=== PATIENT | male | born 1945 | race Caucasian/White ===

== ENCOUNTER 2018-02-10 12:06 | Inpatient (IN) | payer MEDICARE, OTHER ==
[~2018-02-10] VITALS: Ht 180.3 cm; Wt 115.8 kg
[2018-02-10 12:42] LABS: BASOPHILS % (AUTO) 0.1 % (0-1); EOSINOPHILS # (AUTO) 0.3 X10'3 (0-0.9); EOSINOPHILS % (AUTO) 2.7 % (0-6); HEMATOCRIT 43.6 % (42.0-52.0); HEMOGLOBIN 14.7 g/dl (14.0-17.9); LYMPHOCYTES # (AUTO) 1.8 X10'3 (1.1-4.8); MEAN CORPUSCULAR HGB CONC 33.7 % (33.0-36.5); MEAN CORPUSCULAR VOLUME 80.2 FL (78-98); MEAN PLATELET VOLUME 8.7 FL (7.4-10.4); MONOCYTES # (AUTO) 0.9 X10'3 (0-0.9); NEUTROPHILS # (AUTO) 6.6 X10'3 (1.8-7.7); NEUTROPHILS % (AUTO) 69.2 % (42-75); PLATELET COUNT 262 X10'3 (140-440); RED BLOOD COUNT 5.43 X10'6 (4.70-6.10); RED CELL DISTRIBUTION WIDTH 15.7 % (11.5-14.5); WHITE BLOOD COUNT 9.6 X10'3 (4.5-11.0)
[2018-02-10 12:56] LABS: PARTIAL THROMBOPLASTIN TIME 28 SECONDS (22-32); PROTHROMBIN TIME 10.4 SECONDS (9.0-12.0)
[2018-02-10 12:58] LABS: ALANINE AMINOTRANSFERASE 37 U/L (12-78); ALBUMIN 3.6 G/DL (3.4-5.0); ALBUMIN/GLOBULIN RATIO 0.8 (1.1-1.5); ALKALINE PHOSPHATASE 104 IU/L (46-116); ANION GAP 14 (8-16); ASPARTATE AMINO TRANSFERASE 25 U/L (10-37); BILIRUBIN,TOTAL 0.3 MG/DL (0.1-1.0); BLOOD UREA NITROGEN 19 MG/DL (7-18); BUN/CREATININE RATIO 16.8 (5.4-32.0); CALCIUM 8.7 MG/DL (8.5-10.1); CHLORIDE 99 MMOL/L (99-107); CREATININE 1.13 MG/DL (0.60-1.10); GLUCOSE 254 MG/DL (70-104); POTASSIUM 4.1 MMOL/L (3.5-5.1); SODIUM 136 MMOL/L (135-145); TOTAL CARBON DIOXIDE 23.5 MMOL/L (24-32); TOTAL PROTEIN 8.1 G/DL (6.4-8.2); eGFR 64 ML/MIN
[2018-02-10] MEDS ORDERED: aspirin 81mg tab.chew PO ONE (13:35)
[2018-02-10] MEDS ORDERED: nitroGLYCERIN 0.4mg SUBLingual tab SL PRN ×2 (13:35→15:00)
[2018-02-10] MEDS ORDERED: heparin 10,000 units/1 ML INJ IV ONE ×2 (13:35→13:55)
[2018-02-10] MEDS ORDERED: VALS40TA2 PO (14:08)
[2018-02-10] MEDS ORDERED: QUET25TA PO (14:08)
[2018-02-10] MEDS ORDERED: VENL75CA55 PO (14:08)
[2018-02-10] MEDS: heparin 25,000 UNIT/250ml bag 250 ML IV SCH ×2 (14:22→23:50)
[2018-02-10] MEDS ORDERED: HYDROcodone/acetaminophen 5mg/325mg tablet PO PRN (14:35)
[2018-02-10] MEDS ORDERED: magnesium Cl slow-release 64mg tablet PO PRN (14:35)
[2018-02-10] MEDS ORDERED: acetaminophen 325mg tablet PO PRN (14:35)
[2018-02-10] MEDS ORDERED: potassium Cl 20 mEq SR tablet PO PRN ×2 (14:35)
[2018-02-10] MEDS ORDERED: morphine 2 MG/ML inj. syringe IV PRN ×2 (14:35)
[2018-02-10] MEDS ORDERED: ondansetron/PF 4mg/2ml inj IV PRN (14:35)
[2018-02-10] MEDS ORDERED: MESSAGE TO PHARMACY PO ONE ×2 (14:35→21:50)
[2018-02-10] MEDS ORDERED: potassium Cl 40MEQ/NS 500ml 500 ML IV PRN ×2 (14:35)
[2018-02-10] MEDS ORDERED: HYDROcodone/acetaminophen 10/325mg tab PO PRN (14:35)
[2018-02-10] MEDS ORDERED: mag hydrox/Alum hydrox/simeth 30ml oral suspension PO PRN (14:35)
[2018-02-10] MEDS ORDERED: magnesium hydroxide 30ml (MOM) UD suspension PO PRN (14:35)
[2018-02-10] MEDS ORDERED: metoprolol tartrate 1mg/ml inj IV STA (14:35)
[2018-02-10] MEDS ORDERED: magnesium 4gm in 100ml NS 100 ML IV PRN (14:35)
[2018-02-10] MEDS ORDERED: magnesium 1gm/100ml D5W IVPB 100 ML IV PRN (14:35)
[2018-02-10] MEDS ORDERED: atorvastatin 20mg tablet PO SCH (15:00)
[2018-02-10 15:30] LABS: HEMOGLOBIN A1C 7.8 % (4.5-6.2)
[2018-02-10 18:02] VITALS: BP 128/63
[2018-02-10 19:00] VITALS: BP 148/83
[2018-02-10] MEDS ORDERED: metoprolol tartrate 50mg tablet PO SCH (20:00)
[2018-02-10] MEDS: QUEtiapine 25mg tablet PO SCH (21:14)
[2018-02-10] MEDS ORDERED: dextrose ORAL solution 15 GM/59 ML bottle PO PRN ×2 (21:50)
[2018-02-10] MEDS ORDERED: dextrose 50%-water 50ml dispensing syringe IV PRN ×2 (21:50)
[2018-02-10] MEDS ORDERED: glucagon, human recombinant 1mg kit SUBCUT PRN (21:50)
[2018-02-10 22:00] VITALS: BP 118/70
[2018-02-10] MEDS: heparin 10,000 units/1 ML INJ IV PRN (23:44)
[2018-02-11] VITALS (13 sets, daily range): BP systolic 97–152; BP diastolic 52–82
[2018-02-11] MEDS: acetaminophen 325mg tablet PO PRN ×2 (03:11→11:36)
[2018-02-11 07:35] LABS: BASOPHILS % (AUTO) 0.3 % (0-1); EOSINOPHILS # (AUTO) 0.2 X10'3 (0-0.9); EOSINOPHILS % (AUTO) 2.4 % (0-6); HEMOGLOBIN 12.7 g/dl (14.0-17.9); LYMPHOCYTES # (AUTO) 2.1 X10'3 (1.1-4.8); LYMPHOCYTES % (AUTO) 25.6 % (21-51); MEAN CORPUSCULAR HEMOGLOBIN 26.4 PG (27.0-31.0); MEAN CORPUSCULAR HGB CONC 32.7 % (33.0-36.5); MEAN CORPUSCULAR VOLUME 80.7 FL (78-98); MEAN PLATELET VOLUME 8.6 FL (7.4-10.4); MONOCYTES % (AUTO) 12.2 % (2-12); NEUTROPHILS # (AUTO) 4.8 X10'3 (1.8-7.7); NEUTROPHILS % (AUTO) 59.5 % (42-75); PLATELET COUNT 232 X10'3 (140-440); RED BLOOD COUNT 4.83 X10'6 (4.70-6.10); RED CELL DISTRIBUTION WIDTH 15.2 % (11.5-14.5); WHITE BLOOD COUNT 8.1 X10'3 (4.5-11.0)
[2018-02-11 07:53] LABS: ALBUMIN 3.2 G/DL (3.4-5.0); ANION GAP 10 (8-16); BLOOD UREA NITROGEN 15 MG/DL (7-18); BUN/CREATININE RATIO 13.8 (5.4-32.0); CALCIUM 8.7 MG/DL (8.5-10.1); CHLORIDE 102 MMOL/L (99-107); CHOL/HDL RATIO 6.7 (0.00-4.99); CHOLESTEROL 188 MG/DL (0-200); CREATININE 1.09 MG/DL (0.60-1.10); GLUCOSE 198 MG/DL (70-104); HDL CHOLESTEROL 28 MG/DL (35-60); LDL CHOLESTEROL 116 MG/DL (50-100); MAGNESIUM 1.9 MG/DL (1.5-2.4); SODIUM 138 MMOL/L (135-145); TOTAL CARBON DIOXIDE 25.9 MMOL/L (24-32); TRIGLYCERIDES 393 MG/DL (20-135); eGFR 66 ML/MIN
[2018-02-11] MEDS ORDERED: nitroGLYCERIN 0.2mg/hour patch TD SCH (08:00)
[2018-02-11] MEDS: K and/or MAG REPLACEMENT MC SCH (08:00)
[2018-02-11] MEDS ORDERED: metoprolol tartrate 12.5mg (1/2 tablet) PO SCH (08:19)
[2018-02-11] MEDS: metoprolol tartrate 12.5mg (1/2 tablet) PO SCH ×2 (08:30→19:30)
[2018-02-11] MEDS: venlafaxine XR 75mg capsule (Q24H) PO SCH (08:30)
[2018-02-11] MEDS: losartan 25mg tablet PO SCH (08:30)
[2018-02-11] MEDS: heparin 10,000 units/1 ML INJ IV PRN ×2 (08:35→23:21)
[2018-02-11] MEDS: heparin 25,000 UNIT/250ml bag 250 ML IV SCH ×4 (08:36→23:25)
[2018-02-11] MEDS: insulin Lispro (HumaLOG) vial - multi-dose SQ SCH ×3 (08:39→19:29)
[2018-02-11] MEDS ORDERED: aminophylline 250mg/10ml inj. IV PRN (11:55)
[2018-02-11] MEDS ORDERED: nitroGLYCERIN 0.4mg SUBLingual tab SL PRN (11:55)
[2018-02-11] MEDS ORDERED: metoprolol tartrate 1mg/ml inj IV PRN (11:55)
[2018-02-11] MEDS ORDERED: regadenoson 0.4mg/5ml syringe IV ONE ×2 (11:55→15:07)
[2018-02-11] MEDS ORDERED: aminophylline inj. 0 ML IV ONE (15:07)
[2018-02-11] MEDS: QUEtiapine 25mg tablet PO SCH (21:31)
[2018-02-11] MEDS: insulin glargine (Lantus) pen - multi-dose SQ SCH (21:39)
[2018-02-12] VITALS (12 sets, daily range): BP systolic 69–159; BP diastolic 55–79
[2018-02-12] MEDS: heparin 25,000 UNIT/250ml bag 250 ML IV SCH (03:01)
[2018-02-12 06:36] LABS: BASOPHILS % (AUTO) 0.2 % (0-1); EOSINOPHILS # (AUTO) 0.2 X10'3 (0-0.9); EOSINOPHILS % (AUTO) 2.6 % (0-6); HEMATOCRIT 40.4 % (42.0-52.0); HEMOGLOBIN 13.4 g/dl (14.0-17.9); LYMPHOCYTES # (AUTO) 1.5 X10'3 (1.1-4.8); LYMPHOCYTES % (AUTO) 19.3 % (21-51); MEAN CORPUSCULAR HEMOGLOBIN 26.9 PG (27.0-31.0); MEAN CORPUSCULAR HGB CONC 33.2 % (33.0-36.5); MEAN PLATELET VOLUME 8.6 FL (7.4-10.4); MONOCYTES # (AUTO) 1.1 X10'3 (0-0.9); MONOCYTES % (AUTO) 13.5 % (2-12); NEUTROPHILS # (AUTO) 5.1 X10'3 (1.8-7.7); NEUTROPHILS % (AUTO) 64.4 % (42-75); PLATELET COUNT 209 X10'3 (140-440); RED BLOOD COUNT 4.98 X10'6 (4.70-6.10); RED CELL DISTRIBUTION WIDTH 15.1 % (11.5-14.5); WHITE BLOOD COUNT 7.9 X10'3 (4.5-11.0)
[2018-02-12 06:55] LABS: ALBUMIN 3.3 G/DL (3.4-5.0); ANION GAP 11 (8-16); BLOOD UREA NITROGEN 17 MG/DL (7-18); CALCIUM 8.8 MG/DL (8.5-10.1); CHLORIDE 102 MMOL/L (99-107); GLUCOSE 194 MG/DL (70-104); SODIUM 139 MMOL/L (135-145); TOTAL CARBON DIOXIDE 25.6 MMOL/L (24-32); eGFR 73 ML/MIN
[2018-02-12] MEDS: losartan 25mg tablet PO SCH (07:31)
[2018-02-12] MEDS: venlafaxine XR 75mg capsule (Q24H) PO SCH (07:31)
[2018-02-12] MEDS: metoprolol tartrate 12.5mg (1/2 tablet) PO SCH ×2 (07:32→20:10)
[2018-02-12] MEDS: acetaminophen 325mg tablet PO PRN (07:32)
[2018-02-12] MEDS: K and/or MAG REPLACEMENT MC SCH (08:00)
[2018-02-12] MEDS ORDERED: aspirin 325mg tablet PO SCH (08:30)
[2018-02-12] MEDS: normal saline 1000ml 1,000 ML IV SCH ×3 (10:00→20:09)
[2018-02-12] MEDS ORDERED: fentaNYL/PF 50MCG/1 ML 2ML syringe ONE (12:40)
[2018-02-12] MEDS ORDERED: LIDOcaine 1% (10mg/ml)w/preservative injection 20ml MDV ONE (12:40)
[2018-02-12] MEDS ORDERED: midazolam 2 mg/2 ml injection ONE (12:40)
[2018-02-12] MEDS ORDERED: iohexol 350MG/ML 100ml bottle IV ONE ×2 (12:41→14:24)
[2018-02-12] MEDS ORDERED: nitroGLYCERIN-Tridil 50MG/D5W 250 ML IV ONE (12:41)
[2018-02-12] MEDS ORDERED: heparin 1,000unit/ml 10ml vial 10 ML ONE ×2 (12:41→15:06)
[2018-02-12] MEDS ORDERED: iohexol 350 MG/ML 50ML vial IV ONE ×2 (12:41→14:00)
[2018-02-12] MEDS ORDERED: clopidogrel 300mg tablet ONE (15:00)
[2018-02-12] MEDS ORDERED: OXAZEpam 15mg capsule PO PRN (16:00)
[2018-02-12] MEDS ORDERED: HYDROcodone/acetaminophen 10/325mg tab PO PRN ×3 (16:00→16:04)
[2018-02-12] MEDS ORDERED: acetaminophen 325mg tablet PO PRN (16:00)
[2018-02-12] MEDS ORDERED: aspirin 81mg tab.chew PO ONE (16:00)
[2018-02-12] MEDS ORDERED: magnesium hydroxide 30ml (MOM) UD suspension PO PRN (16:00)
[2018-02-12] MEDS ORDERED: cyclobenzaprine 10mg tablet PO PRN (16:00)
[2018-02-12] MEDS: docusate sod 100mg capsule PO SCH (20:10)
[2018-02-12] MEDS: QUEtiapine 25mg tablet PO SCH (20:10)
[2018-02-12] MEDS: insulin Lispro (HumaLOG) vial - multi-dose SQ SCH (20:58)
[2018-02-12] MEDS: insulin glargine (Lantus) pen - multi-dose SQ SCH (20:59)
[2018-02-13] VITALS (14 sets, daily range): BP systolic 112–153; BP diastolic 58–77
[2018-02-13 05:13] LABS: BASOPHILS % (AUTO) 0.1 % (0-1); EOSINOPHILS # (AUTO) 0.3 X10'3 (0-0.9); EOSINOPHILS % (AUTO) 3.4 % (0-6); HEMATOCRIT 37.4 % (42.0-52.0); HEMOGLOBIN 12.4 g/dl (14.0-17.9); LYMPHOCYTES # (AUTO) 1.4 X10'3 (1.1-4.8); LYMPHOCYTES % (AUTO) 19.4 % (21-51); MEAN CORPUSCULAR HEMOGLOBIN 26.9 PG (27.0-31.0); MEAN CORPUSCULAR HGB CONC 33.2 % (33.0-36.5); MONOCYTES % (AUTO) 13.6 % (2-12); NEUTROPHILS # (AUTO) 4.7 X10'3 (1.8-7.7); NEUTROPHILS % (AUTO) 63.5 % (42-75); PLATELET COUNT 231 X10'3 (140-440); RED BLOOD COUNT 4.62 X10'6 (4.70-6.10); RED CELL DISTRIBUTION WIDTH 15.3 % (11.5-14.5); WHITE BLOOD COUNT 7.5 X10'3 (4.5-11.0)
[2018-02-13 05:37] LABS: ALBUMIN 3.1 G/DL (3.4-5.0); ANION GAP 10 (8-16); BLOOD UREA NITROGEN 14 MG/DL (7-18); BUN/CREATININE RATIO 14.6 (5.4-32.0); CALCIUM 8.6 MG/DL (8.5-10.1); CHLORIDE 103 MMOL/L (99-107); CHOL/HDL RATIO 6.4 (0.00-4.99); CHOLESTEROL 172 MG/DL (0-200); CREATININE 0.96 MG/DL (0.60-1.10); GLUCOSE 172 MG/DL (70-104); HDL CHOLESTEROL 27 MG/DL (35-60); LDL CHOLESTEROL 106 MG/DL (50-100); MAGNESIUM 1.9 MG/DL (1.5-2.4); SODIUM 140 MMOL/L (135-145); TOTAL CARBON DIOXIDE 26.8 MMOL/L (24-32); TRIGLYCERIDES 299 MG/DL (20-135); eGFR 77 ML/MIN
[2018-02-13] MEDS: normal saline 1000ml 1,000 ML IV SCH (06:07)
[2018-02-13] MEDS: losartan 25mg tablet PO SCH (07:41)
[2018-02-13] MEDS: venlafaxine XR 75mg capsule (Q24H) PO SCH (07:41)
[2018-02-13] MEDS: docusate sod 100mg capsule PO SCH (07:41)
[2018-02-13] MEDS: metoprolol tartrate 12.5mg (1/2 tablet) PO SCH (07:41)
[2018-02-13] MEDS: K and/or MAG REPLACEMENT MC SCH (07:43)
[2018-02-13] MEDS ORDERED: clopidogrel 75mg tablet PO SCH (08:00)
[2018-02-13] MEDS: insulin Lispro (HumaLOG) vial - multi-dose SQ SCH ×2 (08:10→13:19)
[2018-02-13] MEDS ORDERED: aspirin 325mg tablet PO SCH (08:30)
[2018-02-13] MEDS ORDERED: CLOP75TA35 PO (12:29)
[2018-02-13] MEDS ORDERED: NITR0.4T51 SL (12:29)
[2018-02-13] MEDS ORDERED: ASPI81TA30 PO (12:29)
[2018-02-13] MEDS ORDERED: METO25TA6 PO (12:29)
[2018-02-13] MEDS ORDERED: METF500T PO (12:31)
== END 2018-02-13 14:35 | disposition home or self-care (01) | DRG 247 ==
LOC: ER 12:07 → ED HOLD 14:35 → PCU 3S 16:11 → ICU 2S 02-12 15:34
PROVIDERS: ADMIT Hospitalist; ATTEND Internal Medicine
PROC: 4A02XM4 Measurement of Cardiac Total Activity, External Approach (ICD-10-PCS; 2018-02-11)
PROC: 3E033HZ Introduction of Radioactive Substance into Peripheral Vein, Percutaneous Approach (ICD-10-PCS; 2018-02-11)
PROC: 027034Z Dilation of Coronary Artery, One Artery with Drug-eluting Intraluminal Device, Percutaneous Approach (ICD-10-PCS; principal; 2018-02-12)
PROC: 4A023N7 Measurement of Cardiac Sampling and Pressure, Left Heart, Percutaneous Approach (ICD-10-PCS; 2018-02-12)
PROC: B2151ZZ Fluoroscopy of Left Heart using Low Osmolar Contrast (ICD-10-PCS; 2018-02-12)
PROC: B2111ZZ Fluoroscopy of Multiple Coronary Arteries using Low Osmolar Contrast (ICD-10-PCS; 2018-02-12)
DX: I21.A1 Myocardial infarction type 2 (principal); E11.65 Type 2 diabetes mellitus with hyperglycemia; F43.10 Post-traumatic stress disorder, unspecified; I25.110 Atherosclerotic heart disease of native coronary artery with unstable angina pectoris; I10 Essential (primary) hypertension; E78.00 Pure hypercholesterolemia, unspecified; E78.5 Hyperlipidemia, unspecified; Z88.8 Allergy status to other drugs, medicaments and biological substances; Z79.82 Long term (current) use of aspirin
CPT/HCPCS: 93306; 93458; 96374; 99285; C9600; 36415; 71045; 78452; 80048; 80053; 80061; 82948; 83036; 83735; 83880; 84484; 85025; 85347; 85379; 85610; 85730; 87070; 93005; 93017; 99152; 99153; A4620; A6257; A9500; C1725; C1769; C1874; C1894; G0378; J0280; J1644; J1815; J2001; J2250; J2270; J3010; J3490; J7030; Q9967

== ENCOUNTER 2018-09-08 05:57 | Day surgery (SDC) | payer OTHER, MEDICARE ==
[2018-09-07 13:44] LABS: BASOPHILS % (AUTO) 0.5 % (0-1); EOSINOPHILS # (AUTO) 0.2 X10'3 (0-0.9); EOSINOPHILS % (AUTO) 2.4 % (0-6); HEMATOCRIT 43.5 % (42.0-52.0); HEMOGLOBIN 14.4 g/dl (14.0-17.9); LYMPHOCYTES # (AUTO) 1.9 X10'3 (1.1-4.8); LYMPHOCYTES % (AUTO) 21.2 % (21-51); MEAN CORPUSCULAR HEMOGLOBIN 25.6 PG (27.0-31.0); MEAN CORPUSCULAR HGB CONC 33.2 g/dL (33.0-36.5); MEAN CORPUSCULAR VOLUME 77.2 FL (78-98); MEAN PLATELET VOLUME 7.3 FL (7.4-10.4); MONOCYTES % (AUTO) 11.4 % (2-12); NEUTROPHILS # (AUTO) 5.9 X10'3 (1.8-7.7); NEUTROPHILS % (AUTO) 64.5 % (42-75); PLATELET COUNT 329 X10'3 (140-440); RED BLOOD COUNT 5.63 X10'6 (4.70-6.10); WHITE BLOOD COUNT 9.1 X10'3 (4.5-11.0)
[2018-09-07 13:50] LABS: ALBUMIN 3.5 G/DL (3.4-5.0); ANION GAP 8 (8-16); BLOOD UREA NITROGEN 22 MG/DL (7-18); BUN/CREATININE RATIO 20.4 (5.4-32.0); CALCIUM 9.3 MG/DL (8.5-10.1); CHLORIDE 100 MMOL/L (99-107); CREATININE 1.08 MG/DL (0.60-1.10); GLUCOSE 172 MG/DL (70-104); POTASSIUM 4.2 MMOL/L (3.5-5.1); SODIUM 134 MMOL/L (135-145); TOTAL CARBON DIOXIDE 26.2 MMOL/L (24-32); eGFR 67 ML/MIN
[2018-09-07 13:58] LABS: INR 1.1 INR; PARTIAL THROMBOPLASTIN TIME 29 SECONDS (22-32)
[~2018-09-08] VITALS: Ht 180.3 cm; Wt 114.8 kg
[2018-09-08] VITALS (17 sets, daily range): BP systolic 116–156; BP diastolic 65–84
[~2018-09-08 05:57] MED LIST: CLOP75TA35 PO; METO25TA6 PO; NITR0.4T51 SL; QUET25TA PO; VALS40TA2 PO; VENL75CA55 PO
[2018-09-08] MEDS ORDERED: ASPI-611 PO (06:16)
[2018-09-08] MEDS ORDERED: CLOP75TA33 PO (06:16)
[2018-09-08] MEDS ORDERED: diphenhydrAMINE 25mg capsule PO PRN (06:20)
[2018-09-08] MEDS ORDERED: normal saline 1,000 ML IV SCH ×2 (06:20→10:39)
[2018-09-08] MEDS ORDERED: LORazepam 0.5 MG tablet PO PRN (06:20)
[2018-09-08] MEDS ORDERED: LIDOcaine/PRILOcaine 5gm cream TP ONE (06:45)
[2018-09-08] MEDS ORDERED: U 500 (07:06)
[2018-09-08] MEDS ORDERED: fentaNYL/PF 50MCG/1 ML 2ML syringe ONE (07:41)
[2018-09-08] MEDS ORDERED: heparin 1,000unit/ml 10ml vial 10 ML ONE ×2 (07:41→10:00)
[2018-09-08] MEDS ORDERED: nitroGLYCERIN-Tridil 50MG/D5W 250 ML IV ONE (07:41)
[2018-09-08] MEDS ORDERED: midazolam 2 mg/2 ml injection ONE (07:41)
[2018-09-08] MEDS ORDERED: LIDOcaine 1% (10mg/ml)w/preservative injection 20ml MDV ONE (07:41)
[2018-09-08] MEDS ORDERED: verapamil 2.5 mg/ml inj IV ONE (07:41)
[2018-09-08] MEDS ORDERED: iohexol 350MG/ML 100ml bottle IV ONE ×3 (07:42→09:28)
[2018-09-08] MEDS ORDERED: iohexol 350 MG/ML 50ML vial IV ONE (07:42)
[2018-09-08] MEDS ORDERED: heparin 1,000 UNITS/NS 500ml 500 ML ONE (09:02)
[2018-09-08] MEDS ORDERED: heparin 25,000 UNIT/250ml bag 250 ML IV ONE (09:09)
[2018-09-08] MEDS ORDERED: clopidogrel 300mg tablet ONE (09:33)
[2018-09-08] MEDS ORDERED: magnesium hydroxide 30ml (MOM) UD suspension PO PRN (10:45)
[2018-09-08] MEDS ORDERED: proCHLORperazine 10 MG/2 ml inj IV PRN (10:45)
[2018-09-08] MEDS ORDERED: HYDROcodone/acetaminophen 10/325mg tab PO PRN ×2 (10:45)
[2018-09-08] MEDS ORDERED: cyclobenzaprine 10mg tablet PO PRN (10:45)
[2018-09-08] MEDS ORDERED: acetaminophen 325mg tablet PO PRN (10:45)
[2018-09-08] MEDS ORDERED: OXAZEpam 15mg capsule PO PRN (10:45)
[2018-09-08 15:21] LABS: ISTAT Hct MIX 41 %PCV (42-52); ISTAT O2 SATURATION MIX VENOUS 59 % (60-80); ISTAT SOURCE MIX
[2018-09-08 15:21] LABS: ISTAT HGB ART 13.6 g/dl (14.0-18.0); ISTAT Hct ART 40 %PCV (42-52); ISTAT O2 SATURATION ARTERIAL 89 % (95-98); ISTAT SOURCE ART
--- NOTE | 2018-09-08 15:40 | NUR ---
Problems reprioritized. Patient report given, questions answered & plan of care reviewed with RUCHI Landeros.
[2018-09-08] MEDS ORDERED: docusate sod 100mg capsule PO SCH (20:00)
== END 2018-09-08 18:00 | disposition home or self-care (01) ==
LOC: SSTAY O 05:57
PROVIDERS: ATTEND Internal Medicine Cardiovascular Disease
DX: I25.119 Atherosclerotic heart disease of native coronary artery with unspecified angina pectoris (principal); I10 Essential (primary) hypertension; E78.5 Hyperlipidemia, unspecified; F43.10 Post-traumatic stress disorder, unspecified; Z82.49 Family history of ischemic heart disease and other diseases of the circulatory system; E11.9 Type 2 diabetes mellitus without complications; Z95.5 Presence of coronary angioplasty implant and graft
CPT/HCPCS: 36415; 80048; 82803; 82948; 85014; 85025; 85347; 85610; 85730; 93005; 93458; 99152; 99153; A6257; C1725; C1760; C1769; C1874; C1894; C9600; J1644; J2001; J2250; J3010; J7030; Q0163; Q9967; A4620; J3490